=== PATIENT | male | born 1965 | race Caucasian/White ===

== ENCOUNTER 2020-06-13 14:45 | Emergency (ER) | payer MEDICARE, MEDICAID, SELFPAY ==
--- NOTE | ~2020-06-13 | XR_ITS ---
EXAMINATION: XR knee LT 3V DATE: 06/13/2020 15:23 INDICATION: Posterior left knee pain TECHNIQUE: Anteroposterior, 2 oblique and crosstable lateral views of the left knee were obtained COMPARISON: None. FINDINGS: Alignment is normal. No fracture. Joint spaces appear normal on nonweightbearing imaging. No joint e ffusion/layering lipohemarthrosis. Soft tissues are unremarkable. IMPRESSION: 1. Negative left knee radiographs. Reviewed, dictated and finalized at location A. AND [employer]PA[employer]
[2020-06-13 14:50] VITALS: BP 118/69; PULSE 69; RESP 16; TEMP 35.7; O2SAT 95
[2020-06-13 15:05] VITALS: BP 118/69; PULSE 69; RESP 16; TEMP 35.7; O2SAT 95
--- NOTE | 2020-06-13 15:14 | ED.GENADULT ---
HPI - General Adult General Chief complaint: Extremity Injury, Lower Stated complaint: leg injury Time Seen by Provider: 06/13/20 15:00 Source: patient Mode of arrival: ambulatory Limitations: no limitations History of Present Illness HPI narrative: Patient is a 54-year-old male who presents to emergency department for evaluation of left posterior lateral knee pain patient notes that he injured it 6 days ago while walking notes since has had aching pain to the knee worse with activity and movement patient on arrival to emergency department is in no distress notes mild discomfort has not been seen for this complaint Review of Systems Review of Systems: All systems reviewed & are unremarkable except as noted in HPI and below PMFSH Social History Social History Smoking status: Never smoker Exam Narrative: Exam Narrative: GENERAL: Well-appearing, well-nourished, and in no acute distress. HEAD: Normocephalic, atraumatic. EYES: PERRLA and EOMI. ENT: Nares clear, no rhinorrhea or epistaxis. Mucous membranes moist. EXTREMITIES: Normal range of motion. No edema. Posterior lateral left knee pain no deformity noted remainder of extremity nontender SKIN: Warm, dry, no rash. NEURO: No focal deficits. Alert and oriented x3. Cranial nerves II through XII grossly intact PSYCH: Normal mood and affect. Course Course Emergency Course: Patient in the room in no distress aware of case findings treatment plan diagnosis agreeing to follow-up as directed or to return if symptoms worsen or concerns Vital Signs Vital signs: Vital Signs Temperature 96.3 F L 06/13/20 14:50 Pulse Rate 69 06/13/20 14:50 Respiratory Rate 16 06/13/20 14:50 Blood Pressure 118/69 06/13/20 14:50 Pulse Oximetry 95 06/13/20 14:50 Temperature 96.3 F L 06/13/20 15:05 Pulse Rate 69 06/13/20 15:05 Respiratory Rate 16 06/13/20 15:05 Blood Pressure 118/69 06/13/20 15:05 Pulse Oximetry 95 06/13/20 15:05 Medical Decision Making [facility] Narrative Medical decision making narrative: Patients injury or pain is consistent with musculoskeletal etiology. No signs of neurological or vascular compromise on exam. Compartments and tisues are soft without signs of compartment syndrome. Pain is felt appropriate for further evaluation on an outpatient basis. Vital Signs Vital Signs: Vital Signs Temperature 96.3 F L 06/13/20 14:50 Pulse Rate 69 06/13/20 14:50 Respiratory Rate 16 06/13/20 14:50 Blood Pressure 118/69 06/13/20 14:50 Pulse Oximetry 95 06/13/20 14:50 Temperature 96.3 F L 06/13/20 15:05 Pulse Rate 69 06/13/20 15:05 Respiratory Rate 16 06/13/20 15:05 Blood Pressure 118/69 06/13/20 15:05 Pulse Oximetry 95 06/13/20 15:05 Imaging Data Radiologist's impression: ITS Impressions Knee X-Ray 06/13/20 15:39 IMPRESSION: 1. Negative left knee radiographs. Discharge Plan Discharge Clinical Impression: Injury of knee, left Patient Disposition: Home, Self-Care Condition: Stable Instructions: Antibiotic Form, Arthralgia (ED) Additional Instructions: Follow up with your primary care doctor tommorrow to set up for reevaluation. Go to ER for worsening pain, nausea/vomitting, fever/chills, chest pain, shortness of breath, blood in stools or urine, any redness or swelling involving the extremity etc. or any other concerns. Wear Roni wrap with limited weight until able to do so without pain Take any prescribed medications as directed. You have been provided with an orthopedic referral if your pain persists please contact him to set up follow-up If you do not have a drug allergy to tylenol and can tolerate it then take tylenol as needed for discomfort/pain. Follow-up/Referrals: Gwen,Selena Sanchez MD [Primary Care Provider] - Frank Sky MD [Physician] -
== END 2020-06-13 16:14 | disposition home or self-care (01) ==
PROVIDERS: Emergency Provider Emergency Medicine; PCP Family Medicine
DX: S89.92XA Unspecified injury of left lower leg, initial encounter (principal); X58.XXXA Exposure to other specified factors, initial encounter
CPT/HCPCS: 73562; 99283

== ENCOUNTER 2022-01-19 09:37 | Emergency (ER) | payer OTHER, SELFPAY ==
--- NOTE | ~2022-01-19 | XR_ITS ---
EXAMINATION: XR chest 1V portable DATE: 01/19/2022 10:50 INDICATION: Cough. TECHNIQUE: A single frontal view of the chest was obtained. COMPARISON: None. FINDINGS: The chest demonstrates clear lungs without pneumonia, pleural effusion, or pneumothorax. Th e heart size is normal. IMPRESSION: 1. No acute cardiopulmonary disease. Reviewed, dictated and finalized at location A.
[2022-01-19 09:45] VITALS: BP 130/68; PULSE 85; RESP 16; TEMP 36.6; O2SAT 97
--- NOTE | 2022-01-19 10:00 | ED.URI ---
HPI - URI/Sore Throat General Chief Complaint: Upper Respiratory Infection Stated Complaint: body aches, cough - requesting covid testing Time Seen by Provider: 01/19/22 09:40 Source: patient and family Mode of arrival: ambulatory Limitations: no limitations History of Present Illness HPI Narrative: Patient is a 56-year-old male, with a history of Klinefelter syndrome, who presents to the ED with report of upper respiratory symptoms. Patient reports he began feeling unwell yesterday, with cough, body aches, chills, sweats, headache, congestion, rhinorrhea. He has been taking Tylenol and NyQuil at home for her symptoms. Denies any headache currently. No chest pain or difficulty breathing. Denies any nausea, vomiting, abdominal pain. He lives with his sister who is his primary rough rice grader, and she is also here in the ED reporting symptoms since Sunday. Denies any other known exposure. He is not vaccinated for COVID. Requesting COVID testing. Related Data Home Medications Medication Instructions Recorded Confirmed Lactobacillus acidophilus 10 mg PO DAILY 06/23/20 08/04/20 (Acidophilus capsule) escitalopram oxalate 20 mg tablet 20 mg PO DAILY 06/23/20 08/04/20 furosemide 40 mg tablet 40 mg PO QAM 06/23/20 08/04/20 meclizine 25 mg tablet 25 mg PO BID 06/23/20 08/04/20 potassium chloride 20 mEq oral 20 meq PO DAILY 06/23/20 08/04/20 packet (Klor-Con) rosuvastatin 10 mg tablet 10 mg PO DAILY 06/23/20 08/04/20 testosterone 1 % (25 mg/2.5 gram) 1 packet transdermal DAILY 06/23/20 08/04/20 transdermal gel packet Allergies Allergy/AdvReac Type Severity Reaction Status Date / Time No Known Allergies Allergy Unverified 06/23/20 10:42 Review of Systems Review of Systems: CONSTITUTIONAL: Reports chills and sweats. Denies documented fever. ENT: Reports rhinorrhea, congestion. CARDIOVASCULAR: Denies chest pain. RESPIRATORY: Reports cough. Denies dyspnea. GASTROINTESTINAL: Denies abdominal pain, nausea, vomiting. MUSCULOSKELETAL: Reports myalgia. NEUROLOGIC: Reports headache. Denies tingling, numbness, or focal weakness. All systems reviewed & are unremarkable except as noted in HPI and below PMFSH Past Medical History Medical History (Updated 01/19/22 @ 10:58 by Carly Pizarro PA-C) BMI 40.0-44.9, adult GERD (gastroesophageal reflux disease) Hypercholesterolemia Klinefelter syndrome per daughter who is POA Surgical History Surgical History History of cardiac cath Family History Family History Other Cerebrovascular accident Diabetes mellitus Heart disease Hypertension Social History Social History Smoking status: Never smoker Alcohol intake: current Alcohol use details: occasional Additional living arrangements comments: sister lives next door Additional occupation/education comments: disabled Exam Narrative: GENERAL: Well appearing, obese, non-toxic, in no acute distress. HEAD: Normocephalic, atraumatic. NECK: Supple. No adenopathy, no masses. RESPIRATORY: Airway patent, respirations nonlabored. Clear to auscultation bilaterally, no rales, rhonchi, wheezing. Occasional coughing on exam. CARDIOVASCULAR: Regular rate and rhythm without murmurs, rubs, or gallops. Peripheral pulses 2+ and equal bilaterally. ABDOMINAL: Soft, nontender, nondistended, no hepatosplenomegaly. Normoactive BS. MUSCULOSKELETAL: Moves all extremities. Strength/ROM intact without gross deformities. SKIN: Warm, dry, normal color. No rashes. NEURO: A&O X3. Speech clear. Cranial nerves II-XII grossly intact. Steady gait. No ataxic movements. PSYCHIATRIC: Appropriate mood and affect. Normal interaction. Course Vital Signs Vital signs: Vital Signs Temperature 97.9 F 01/19/22 09:45 Pulse Rate 85 01/19/22 09:45 Respiratory Rate 16 01/19/22 09:45
[2022-01-19 10:44] LABS: SARS-CoV-2 RNA PCR Positive
== END 2022-01-19 11:15 | disposition home or self-care (01) ==
PROVIDERS: Physician Assistant; Emergency Provider Emergency Medicine; PCP Family Medicine
DX: U07.1 COVID-19 (principal); E78.00 Pure hypercholesterolemia, unspecified; K21.9 Gastro-esophageal reflux disease without esophagitis; Q98.4 Klinefelter syndrome, unspecified; Z28.310 Unvaccinated for COVID-19
CPT/HCPCS: 71045; 99283; C9803; U0003; U0005